=== PATIENT | female | born 1995 | race Caucasian/White ===

== ENCOUNTER 2020-05-31 08:00 | Outpatient (CLI) | payer BC, MEDICAID ==
[2020-05-31 18:59] LABS: MUDS CUTOFF CONCENTRATIONS CUTOFF CONC BELOW:
[2020-05-31 19:16] LABS: BILIRUBIN,URINE NEGATIVE (NEGATIVE); GLUCOSE, URINE (UA) NEGATIVE (NEGATIVE); KETONES,URINE (UA) NEGATIVE (NEGATIVE); LEUKOCYTE ESTERASE, URINE NEGATIVE (NEGATIVE); NITRITE,URINE NEGATIVE (NEGATIVE); OCCULT BLOOD,URINE NEGATIVE (NEGATIVE); PH,URINE 5.5 PH (5.0-7.5); PROTEIN,URINE NEGATIVE (NEGATIVE); UROBILINOGEN,URINE 0.2 (NORMAL) E.U./dL (NORMAL)
[2020-05-31 19:39] LABS: BACTERIA,URINE None Seen /HPF (None Seen); CLARITY,URINE CLEAR (CLEAR); RBC,URINE None Seen /HPF (0-5); SQUAMOUS EPITHELIAL CELL,UR RARE Squamous (<= Few)
[2020-05-31 19:52] LABS: AMPHETAMINE SCREEN,URINE NEGATIVE (NEGATIVE); BENZODIAZEPINES SCREEN, URINE NEGATIVE (NEGATIVE); COCAINE SCREEN URINE NEGATIVE (NEGATIVE); METHADONE SCREEN, URINE NEGATIVE (NEGATIVE); METHAMPHETAMINES SCREEN, URINE NEGATIVE (NEGATIVE); OPIATE SCREEN, URINE NEGATIVE (NEGATIVE); OXYCODONE SCREEN, URINE NEGATIVE (NEGATIVE); PROPOXYPHENE SCREEN, URINE NEGATIVE (NEGATIVE); TRICYCLIC ANTIDEPRESSANT,URINE NEGATIVE (NEGATIVE)
== END 2020-05-31 23:59 | disposition home or self-care (01) ==
LOC: LAB.R 08:00
PROVIDERS: ATTEND Obstetrics & Gynecology
DX: Z34.90 Encounter for supervision of normal pregnancy, unspecified, unspecified trimester (principal)
CPT/HCPCS: 80306; 81001; 87086

== ENCOUNTER 2020-06-06 08:00 | Outpatient (CLI) | payer BC, MEDICAID | END 2020-06-06 23:59 | disposition home or self-care (01) | LOC: LAB.R 08:00 | PROVIDERS: ATTEND Physician Assistant | DX: N30.00 Acute cystitis without hematuria (principal) | CPT/HCPCS: 87086 ==

== ENCOUNTER 2020-06-10 08:15 | Outpatient (CLI) | payer BC ==
--- NOTE | 2020-06-10 10:18 | Ultrasound Report ---
PROCEDURE: OB First Trimester INDICATIONS: SUPERVISION OF NORMAL OUTSIDE/PRIOR DATING DATA: Last menstrual period (LMP): 04/18/2020. LMP-based estimated date of delivery (BRITTANIE): 01/23/2021. First dating scan (date and location): This study, 06/10/2020. Estimated date of delivery (BRITTANIE) from first dating scan: 01/29/2021, +/- 5 days. TECHNIQUE: Real-time scanning was performed of the fetus and maternal pelvic organs, with image documentation. COMPARISON: None FINDINGS: There is a single living intrauterine gestation with heart rate 119 bpm and normal materna l cervical length. Embryo: Note is made of a crown-rump length of 7 mm which correlates with a gestational age estimate of 6 weeks 5 days, +/- 5 days Measurement variability in dating: +/- 4 weeks by LMP, +/- 7 days by mean sac diameter (use before 6 weeks gestation if crown-rump length not able to be measured), +/- 5 days by crown-rump length (6-12 weeks gestation). Maternal organs: Ovaries appear normal considering gestational status with a right sided corpus lute um cyst. Limited images through the kidneys demonstrate no hydronephrosis. IMPRESSION: Normal intrauterine gestation, heart rate observed, delivery date is projected to be centered o n 01/29/2021, +/- 5 days. 20 week anatomic survey is recommended. Reviewed by: Narendra Rojas MD on 06/10/2020 10:16 AM PST Approved by: Narendra Rojas MD on 06/10/2020 10:16 AM PST Station ID: [id number]
== END 2020-06-10 08:16 | disposition home or self-care (01) ==
LOC: DI 08:15
PROVIDERS: ATTEND Obstetrics & Gynecology
DX: Z34.90 Encounter for supervision of normal pregnancy, unspecified, unspecified trimester (principal)

== ENCOUNTER 2020-07-10 12:21 | Outpatient (CLI) | payer MEDICAID | END 2020-07-10 12:22 | disposition home or self-care (01) | LOC: LAB 12:21 | PROVIDERS: ATTEND Nurse Practitioner Obstetrics & Gynecology | DX: O02.1 Missed abortion (principal) | CPT/HCPCS: 36415; 84702; 86900; 86901 ==

== ENCOUNTER 2020-07-11 14:21 | Emergency (ER) | payer MEDICAID ==
[2020-07-11 14:28] VITALS: BP 114/68
--- NOTE | 2020-07-11 14:58 | ED Physician Documentation ---
History of Present Illness - Stated complaint Stated Complaint: FEMALE - Chief complaint Chief Complaint: Abd Pain - History obtained from History obtained from: Patient - Additonal information Additional information: Pt comes to ED for low abdominal cramping after taking her meds. Pt states she was dx with IUFD, and had 2 single dose meds to help initiate . She states that she had very strong cramps and pain within 30 min of taking the med, and originally came to the ED for pain control. However, she states that she feels completely better now, and no longer needs meds. SHe states she has had a slight bit of spotting, but no passage of tissue. No other complaints at this time. Review of Systems Ten Systems: 10 systems reviewed and negative Constitutional: reports: Reviewed and negative Eyes: reports: Reviewed and negative Ears: reports: Reviewed and negative Nose: reports: Reviewed and negative Throat: reports: Reviewed and negative Cardiac: reports: Reviewed and negative Respiratory: reports: Reviewed and negative GI: reports: Abdominal Pain. 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 : None HEENT: None Psych: None Musculoskeletal: None Derm: None - Past Surgical History Past Surgical History: Yes General: Other Ortho: Other - Present Medications Home Medications: Ambulatory Orders Medication Instructions Recorded Confirmed Implant Bcp ID 12/21/15 Acyclovir 400 mg PO BID #20 tablet 04/24/16 Lidocaine Ointment 5% [Xylocaine 36 applic TOP QID #1 tube 04/24/16 Ointment 5%] - Allergies Allergies/Adverse Reactions: Allergies Allergy/AdvReac Type Severity Reaction Status Date / Time No Known Drug Allergies Allergy Verified 04/24/16 09:36 - Social History Does the pt smoke?: No Smoking Status: Never smoker Does the pt drink ETOH?: No Does the pt have substance abuse?: No - Immunizations Immunizations are current?: Yes - POLST Patient has POLST: No PD ED PE NORMAL - Vitals Vital signs reviewed: Yes - General General: Alert and oriented X 3, No acute distress - HEENT HEENT: Atraumatic, PERRL, EOMI, Moist mucous membranes - Neck Neck: Supple, no meningeal sign - Cardiac Cardiac: RRR, No murmur - Respiratory Respiratory: No respiratory distress, Clear bilaterally - Abdomen Abdomen: Soft, Non tender, Non distended - Derm Derm: Warm and dry - Extremities Extremities: No deformity - Neuro Neuro: Alert and oriented X 3 - Psych Psych: Normal mood, Normal affect Results - Vitals Vitals: Oxygen O2 Source Room air PD MEDICAL DECISION MAKING - ED course Complexity details: considered differential, d/w patient ED course: Pt was doing much better, and I did not feel emergent intervention or work-up was indicated. I d/w pt that these are common side effects with the kind of meds she has taken. She should follow up with OB if does not initiate within 48 hours. She is Rh +. STable for d/c. We have discussed the usual indications for return. Departure - Departure Disposition: 01 Home, Self Care Clinical Impression: Medication side effect Abdominal pain Qualifiers: Abdominal location: lower abdomen, unspecified Qualified Code(s): R10.30 - Lower abdominal pain, unspecified Condition: Stable Comments: The symptoms you have experienced today are very common with any medication that is given to help a miscarriage to complete. Often very strong cramping or even simply pain accompany the effects of the medication within the first couple of hours. Generally, these will subside on their own. You can take pain medication to help with the symptoms if needed. At this point in time, you will need to wait for the medication to take effect in terms of causing your to pass. If you do not notice any bleeding from your vagina in the next 24 hours, you will need to call your OB specialist and determine what the next best step is. Discharge Date/Time: 07/11/20 15:19
== END 2020-07-11 15:19 | disposition home or self-care (01) ==
LOC: ED 14:21
DX: O9A.219 Injury, poisoning and certain other consequences of external causes complicating pregnancy, unspecified trimester (principal); R10.30 Lower abdominal pain, unspecified; T50.905A Adverse effect of unspecified drugs, medicaments and biological substances, initial encounter; O03.4 Incomplete spontaneous abortion without complication; Z3A.00 Weeks of gestation of pregnancy not specified
CPT/HCPCS: 99281; 99282

== ENCOUNTER 2020-07-30 09:56 | Outpatient (CLI) | payer MEDICAID | END 2020-07-30 09:57 | disposition home or self-care (01) | LOC: LAB.S 09:56 | PROVIDERS: ATTEND Nurse Practitioner Obstetrics & Gynecology | DX: O02.1 Missed abortion (principal) ==

== ENCOUNTER 2020-07-30 11:22 | Outpatient (CLI) | payer MEDICAID | END 2020-07-30 11:23 | disposition home or self-care (01) | LOC: LAB 11:22 | PROVIDERS: ATTEND Nurse Practitioner Obstetrics & Gynecology | DX: O02.1 Missed abortion (principal) | CPT/HCPCS: 36415; 84702 ==

== ENCOUNTER 2021-09-01 22:19 | Outpatient (CLI) | payer MEDICAID | END 2021-09-01 22:20 | disposition critical access hospital (66) | LOC: EMS 22:19 | DX: R40.1 Stupor (principal); Z72.89 Other problems related to lifestyle | CPT/HCPCS: A0425; A0427; A0999 ==

== ENCOUNTER 2021-09-01 22:32 | Emergency (ER) | payer MEDICAID ==
[2021-09-01] MEDS ORDERED: SODIUM CHLORIDE 0.9% 1,000 ML IV STA (22:36)
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
[2021-09-01 22:53] LABS: BASOPHILS # (AUTO) 0.1 10^3/uL (0.0-0.1); EOSINOPHILS % (AUTO) 0.1 %; HCT - HEMATOCRIT 39.7 % (37.0-47.0); HGB - HEMOGLOBIN 13.4 g/dL (12.0-16.0); LYMPHOCYTES # (AUTO) 2.6 10^3/uL (1.5-3.5); LYMPHOCYTES % (AUTO) 37.1 %; MEAN CORPUSCULAR HEMOGLOBIN 30.6 pg (27.0-31.0); MEAN CORPUSCULAR HGB CONC 33.8 g/dL (32.0-36.0); MEAN CORPUSCULAR VOLUME 90.6 fL (81.0-99.0); MEAN PLATELET VOLUME 10.6 fL (7.9-10.8); MONOCYTES # (AUTO) 0.2 10^3/uL (0.0-1.0); MONOCYTES % (AUTO) 3.4 %; NEUTROPHILS # (AUTO) 4.1 10^3/uL (1.5-6.6); NEUTROPHILS % (AUTO) 58.1 %; PLT - PLATELET COUNT 227 10^3/uL (130-450); RED BLOOD COUNT 4.38 10^6/uL (4.20-5.40)
[2021-09-01 22:58] VITALS: BP 128/86
[2021-09-01 22:58] LABS: CALCIUM 8.4 mg/dL (8.5-10.3); CREATININE 0.5 mg/dL (0.4-1.0); ETOH - ETHANOL 287.7 mg/dL; POTASSIUM 3.8 mmol/L (3.5-5.0)
== END 2021-09-01 23:28 | disposition home or self-care (01) ==
LOC: EDUNIT# → ED 22:32
DX: F10.129 Alcohol abuse with intoxication, unspecified (principal); Y90.8 Blood alcohol level of 240 mg/100 ml or more
CPT/HCPCS: 36415; 80048; 80320; 85025; 99283